=== PATIENT | female | born 1995 ===

== ENCOUNTER 2023-09-03 00:08 | Inpatient (IN) | payer OTHER ==
[2023-09-03] MEDS ORDERED: Sodium Chloride 0.9% 2.5 ML Syringe FLUSH PRN (00:16)
[2023-09-03] MEDS ORDERED: Misoprostol 200 MCG Tab PO PRN (00:16)
[2023-09-03] MEDS ORDERED: Tranexamic Acid IN NACL,ISO-OS 1,000 MG in Premix Bag 1 BAG IV PRN (00:16)
[2023-09-03] MEDS ORDERED: Terbutaline 1 MG/ML SDV SUBCUT PRN (00:16)
[2023-09-03] MEDS ORDERED: Misoprostol 25 MCG (1/4 of 100 MCG) Tab VAG PRN (00:16)
[2023-09-03] MEDS ORDERED: Lidocaine 1% 50 ML MDV INJECT PRN (00:16)
[2023-09-03] MEDS ORDERED: Nalbuphine 10 MG/0.5 ML Syringe IVPUSH PRN (00:16)
[2023-09-03] MEDS ORDERED: Carboprost Tromethamine 250 MCG/1 mL Vial IM PRN (00:16)
[2023-09-03] MEDS ORDERED: Water For Irrigation,Sterile 1,000 ML Container IRR PRN (00:16)
[2023-09-03] MEDS ORDERED: Sodium Chloride 0.9% 10 ML Syringe FLUSH PRN (00:16)
[2023-09-03] MEDS ORDERED: Methylergonovine 0.2 MG/1 ML Amp IM PRN (00:16)
[2023-09-03] MEDS ORDERED: Sodium Chloride 0.9% 20 ML SDV IV PRN (00:16)
[2023-09-03] MEDS: Lactated Ringers 1,000 ML IV SCH (00:30)
[2023-09-03] MEDS ORDERED: Oxytocin/0.9 % Sodium Chloride 30 UNIT/500 ML BAG IV SCH (00:30)
[2023-09-03 01:03] LABS: HEMOGLOBIN 10.6 g/dL (12.0-16.0); MEAN CORPUSCULAR HEMOGLOBIN 29.7 pg (28.0-32.0); MEAN CORPUSCULAR HGB CONC 34.2 g/dL (32.0-36.0); MEAN CORPUSCULAR VOLUME 86.8 fL (83.0-99.0); PLATELET COUNT,PLT 218 K/uL (150-400); RED BLOOD CELL COUNT 3.57 M/uL (4.10-5.30); WHITE BLOOD CELL COUNT,WBC 8.25 K/uL (3.9-11.3)
[2023-09-03] MEDS: Misoprostol 25 MCG (1/4 of 100 MCG) Tab VAG PRN (01:17)
[2023-09-03] MEDS: Oxytocin/0.9 % Sodium Chloride 30 UNIT/500 ML BAG IV SCH (05:27)
[2023-09-03] MEDS: Ondansetron 4 MG/2 ML SDV IVPUSH PRN ×2 (06:29→12:58)
[2023-09-03] MEDS ORDERED: Bupivacaine 0.5% 10 ML SDV ONE (06:51)
[2023-09-03] MEDS ORDERED: Phenylephrine HCl 0.5 MG/5 ML AMP ONE (06:51)
[2023-09-03] MEDS ORDERED: Ropivacaine HCl/PF 200 ML ONE (06:51)
[2023-09-03] MEDS: Ropivacaine HCl/PF 400 MG in Premix Bag 1 BAG EPIDUR SCH (07:06)
[2023-09-03] MEDS ORDERED: ePHEDrine 50 MG/ML SDV IVPUSH PRN ×2 (07:21)
[2023-09-03] MEDS ORDERED: Phenylephrine HCl 0.5 MG/5 ML AMP IVPUSH PRN (07:21)
[2023-09-03] MEDS ORDERED: oxyCODONE 5 MG Tab PO PRN (12:23)
[2023-09-03 12:39] LABS: PH,UMBILICAL ARTERIAL 7.201 (7.18-7.38); PH,UMBILICAL VENOUS 7.381 (7.25-7.45)
[2023-09-03] MEDS ORDERED: Ondansetron 4 MG/2 ML SDV ONE (12:57)
[2023-09-03] MEDS: Docusate Sodium 100 MG Cap PO PRN (19:57)
[2023-09-03] MEDS: Acetaminophen 500 MG Tab PO PRN (19:57)
[2023-09-04 05:28] LABS: HEMATOCRIT 29.1 % (37.0-47.0); HEMOGLOBIN 9.6 g/dL (12.0-16.0)
[2023-09-04] MEDS: Ibuprofen 800 MG Tab PO PRN (08:31)
[2023-09-04] MEDS: Witch Hazel Medicated Pads 40/Jar TOP PRN (10:42)
[2023-09-04] MEDS: Benzocaine/Menthol 20%-0.5% Spray 78 GM Cannister TOP PRN (10:43)
[2023-09-04] MEDS: Lanolin 100% Cream 7 GM Tube TOP PRN (10:43)
== END 2023-09-04 16:30 | disposition home or self-care (01) | DRG 807 ==
LOC: MW.OBCHECK 00:08 → MW.OB 00:10 → MW.OBCHECK 00:35 → OBSVTOIN 12:23 → MW.OB 16:40
PROVIDERS: ADMIT Obstetrics & Gynecology; ATTEND Obstetrics & Gynecology
PROC: 10E0XZZ Delivery of Products of Conception, External Approach (ICD-10-PCS; principal; 2023-09-03)
PROC: 0HQ9XZZ Repair Perineum Skin, External Approach (ICD-10-PCS; 2023-09-03)
PROC: 3E0R3BZ Introduction of Anesthetic Agent into Spinal Canal, Percutaneous Approach (ICD-10-PCS; 2023-09-03)
PROC: 00HU33Z Insertion of Infusion Device into Spinal Canal, Percutaneous Approach (ICD-10-PCS; 2023-09-03)
PROC: 3E033VJ Introduction of Other Hormone into Peripheral Vein, Percutaneous Approach (ICD-10-PCS; 2023-09-03)
PROC: 3E0P7VZ Introduction of Hormone into Female Reproductive, Via Natural or Artificial Opening (ICD-10-PCS; 2023-09-03)
PROC: 3E0DXGC Introduction of Other Therapeutic Substance into Mouth and Pharynx, External Approach (ICD-10-PCS; 2023-09-03)
PROC: 3E0334Z Introduction of Serum, Toxoid and Vaccine into Peripheral Vein, Percutaneous Approach (ICD-10-PCS; 2023-09-03)
DX: O26.893 Other specified pregnancy related conditions, third trimester (principal); Z37.0 Single live birth; O70.0 First degree perineal laceration during delivery; O69.81X0 Labor and delivery complicated by cord around neck, without compression, not applicable or unspecified; Z67.11 Type A blood, Rh negative; Z98.890 Other specified postprocedural states; Z3A.39 39 weeks gestation of pregnancy
CPT/HCPCS: 36415; 51702; 59025; 59409; 82803; 85014; 85018; 85027; 85460; 86592; 86850; 86900; 86901; A9270-GY; J0665; J2371; J2405; J2590; J2790; J2795; J7120

== ENCOUNTER 2023-09-15 18:36 | Emergency (ER) | payer OTHER ==
[2023-09-15 19:51] LABS: BASOPHILS ABSOLUTE AUTO 0.04 K/uL (0.00-0.20); BASOPHILS PERCENT AUTO 0.7 % (0.0-1.0); EOSINOPHILS ABSOLUTE AUTO 0.16 K/uL (0.00-0.45); EOSINOPHILS PERCENT AUTO 2.7 % (0.0-6.0); HEMATOCRIT 36.8 % (37.0-47.0); HEMOGLOBIN 12.1 g/dL (12.0-16.0); IMMATURE GRAN ABSOLUTE AUTO 0.02 K/uL (0.00-0.05); IMMATURE GRAN PERCENT AUTO 0.3 % (0.0-0.4); LYMPHOCYTES ABSOLUTE AUTO 2.41 K/uL (1.00-4.80); LYMPHOCYTES PERCENT AUTO 41.3 % (24.0-44.0); MEAN CORPUSCULAR HEMOGLOBIN 29.6 pg (28.0-32.0); MEAN CORPUSCULAR HGB CONC 32.9 g/dL (32.0-36.0); MEAN PLATELET VOLUME 10.2 fL (9.4-12.3); MONOCYTES ABSOLUTE AUTO 0.43 K/uL (0.00-0.80); MONOCYTES PERCENT AUTO 7.4 % (0.0-8.0); NEUTROPHILS ABSOLUTE AUTO 2.78 K/uL (1.80-7.70); NEUTROPHILS PERCENT AUTO 47.6 % (41.0-71.0); PLATELET COUNT,PLT 330 K/uL (150-400); RED BLOOD CELL COUNT 4.09 M/uL (4.10-5.30); WHITE BLOOD CELL COUNT,WBC 5.84 K/uL (3.9-11.3)
[2023-09-15] MEDS: Dexamethasone 10 MG/ML SDV IVPUSH ONE (20:12)
[2023-09-15] MEDS: Sodium Chloride 0.9% 1,000 ML IV STA (20:12)
[2023-09-15] MEDS: Magnesium Sulfate/Water 2 GM in Premix Bag 1 BAG IV ONE (20:12)
[2023-09-15 20:20] LABS: A/G RATIO 0.8 (0.9-1.6); ALBUMIN 3.4 g/dL (3.4-5.0); BILIRUBIN TOTAL 0.4 mg/dL (0.2-1.0); CALCIUM 8.8 mg/dL (8.5-10.1); CARBON DIOXIDE,CO2 26.4 mmol/L (21.0-32.0); CREATININE 0.9 mg/dL (0.6-1.0); EST CRCL DRUG DOSING (CG) 94.72 mL/min; POTASSIUM,K 3.5 mmol/L (3.5-5.1); PROTEIN TOTAL,TP 7.5 g/dL (6.4-8.2)
[2023-09-15] MEDS: Ketorolac 30 MG/ML SDV IVPUSH ONE (20:26)
[2023-09-15] MEDS: diphenhydrAMINE 50 MG/ML SDV IVPUSH STA (21:10)
[2023-09-15] MEDS: Iopamidol 755 MG/ML 500 ML Multipack Bottle IVPUSH STA (21:10)
[2023-09-15] MEDS: diphenhydrAMINE 50 MG/ML SDV ONE (21:42)
== END 2023-09-15 22:49 | disposition home or self-care (01) ==
LOC: MW.ED 18:36
DX: R51.9 Headache, unspecified (principal); M54.81 Occipital neuralgia
CPT/HCPCS: 36415; 70450; 70460; 80053; 85025; 96365; 96366; 96375; 99284; J1100; J1200; J3475; J7030; Q9967; 70470; 70470-26

== ENCOUNTER 2024-09-26 18:02 | Emergency (ER) | payer OTHER | END 2024-09-26 20:51 | disposition home or self-care (01) | LOC: MW.ED 18:02 | DX: S93.402A Sprain of unspecified ligament of left ankle, initial encounter (principal); Z79.899 Other long term (current) drug therapy; Z91.041 Radiographic dye allergy status; Z75.8 Other problems related to medical facilities and other health care; X50.9XXA Other and unspecified overexertion or strenuous movements or postures, initial encounter | CPT/HCPCS: 73610-26-LT; 73610-LT; 99283 ==